=== PATIENT | female | born 2000 | race Caucasian/White ===

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

== ENCOUNTER 2021-07-24 14:44 | Emergency (ER) | payer OTHER ==
[2021-07-24 15:52] VITALS: BP 125/78; PULSE 104
[2021-07-24] MEDS ORDERED: Azithromycin 250 MG Tab PO ONE (17:55)
[2021-07-24] MEDS ORDERED: cefTRIAXone 500 MG Vial IM ONE (17:57)
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
== END 2021-07-24 18:45 | disposition home or self-care (01) ==
LOC: JP.ED 14:44
DX: T76.21XA Adult sexual abuse, suspected, initial encounter (principal); F10.129 Alcohol abuse with intoxication, unspecified; Z88.0 Allergy status to penicillin; Z88.1 Allergy status to other antibiotic agents
CPT/HCPCS: 96372; 99284; A9270-GY; J0696